=== PATIENT | female | born 1990 | race Caucasian/White ===

== ENCOUNTER 2017-07-16 10:35 | Day surgery (SDC) | payer OTHER, SELFPAY ==
[2017-07-16] VITALS (8 sets, daily range): BP systolic 95–139; BP diastolic 59–78; PULSE 78–90; RESP 18–20; TEMP 36.7; O2SAT 98–100; BMI 25.9
[2017-07-16 11:03] LABS: Urine Pregnancy, HCG Qual. Negative (Negative)
--- NOTE | 2017-07-16 11:21 | HMH.ANESCL ---
[facility] Anesthesia Checklist - Patient Identification Patient Identification: Arm Band, Verbal (Name & ) - Structural Data Admitted From: Home Planned Operative Procedure/s: colonoscopy Consent for Planned Operative Procedure(s) Verified: Yes Verified Documents: Surgical Consent - NPO Status Verified Time NPO: 00:00 - Additional verifications Patient : No Anesthesia Reactions: No Hx Blood Transfusions: No Blood Transfusion Reaction: No Cephalosporin Allergy: No Previous Colonoscopy: No - Cardiovascular Assessment Heart Sounds: S1 & S2 Pulse Strength: Baseline Pulse Rhythm: Regular - Airway Assessment C-Spine Mobility Assessed: Yes TMJ Mobility Assessed: Yes Dentition: Good Dentition - Neurological Assessment Level of Consciousness: Awake, Alert, Appropriate Hx Seizures: No Numbness or tingling in extremities: No - Anesthesia Plan Anesthesia Risk discussed: Yes Anesthesia Plan: Verified ASA Class: I Anesthesia Type: MAC [facility] Anesthesia HX I have reviewed the patient's past medical history: Yes Medical History: Reports:: Gastroesophageal Reflux Disease(GERD) Denies:: Diabetes Mellitus Type 1, Diabetes Mellitus Type 2, Internal Pacemaker, Lung Disease, Seizures Other Surgeries: No: Pacemaker *Family Hx:: Unable to obtain
--- NOTE | 2017-07-16 11:38 | HMH.PROC ---
[facility] Procedure Note Procedure Note:: Colonoscopy Procedure Report: Colonoscopy with cold biopsies Endoscopist: Nahun Lara II, MD Referring physician: None Date of Procedure: July 16, 2017 Equipment: Olympus 180 variable stiffness pediatric colonoscope Sedation: MAC sedation Indication: Ms. Shin is a 26-year-old female with dyspepsia. She also has had bowel irregularity with diarrhea and sometimes constipation. The diarrhea has been predominant. She does state that her symptoms have been much more manageable and she has reduced abdominal pain and diarrhea. She has less bloating. Her EGD from May 04, 2017 showed linear reactive gastritis and some nonerosive GERD. Her gastric biopsies confirmed reactive gastritis. Her duodenal biopsies showed no evidence of celiac disease. She was treated with a fiber bowel regimen and buspirone. The patient reports no rectal bleeding, weight loss or family history of colon cancer. Procedure: Prior to the procedure, a history and physical exam was performed, and patient's medications and allergies were reviewed. The risks, benefits and alternatives of the sedation and procedure were discussed with the patient. All questions were answered and informed consent was obtained. The patient was brought to the procedure room. Patient identification and proposed procedure were verified by the physician and the nurse. The patient was placed in a left lateral decubitus position and the scope was passed under direct vision. Throughout the procedure, the patient's blood pressure, pulse, and oxygen saturations were monitored continuously. The colonoscopy was accomplished without difficulty. The patient tolerated the procedure well. Findings: On digital rectal examination there was normal rectal tone. There were no external hemorrhoids. The colonoscope was introduced through the anal canal to the rectum and advanced to the cecum. The ileocecal valve and appendiceal orifice were identified. The scope was advanced a short distance into the ileum which appeared grossly normal. The scope was then withdrawn into the colon. The cecum, ascending, transverse, descending, sigmoid and rectum were grossly normal. Random cold biopsies were taken from the right colon/ascending colon to rule out microscopic colitis. There were no mucosal abnormalities identified. Upon retroflexion within the rectum there were grade 1 internal hemorrhoids. Impression: 1. Normal colonoscopy with intubation of the terminal ileum 2. Grade 1 internal hemorrhoids Plan: I do feel that the patient has functional bowel disease. I would continue dietary measures, fiber bowel regimen and buspirone. She will follow-up with Linda cason on July 18, 2017.
--- NOTE | 2017-07-16 11:57 | P.PCN_ITS ---
[facility] Procedure Note Procedure Note:: Colonoscopy Procedure Report: Colonoscopy with cold biopsies Endoscopist: Nahun Lara II, MD Referring physician: None Date of Procedure: July 16, 2017 Equipment: Olympus 180 variable stiffness pediatric colonoscope Sedation: MAC sedation Indication: Ms. Shin is a 26-year-old female with dyspepsia. She also has had bowel irregularity with diarrhea and sometimes constipation. The diarrhea has been predominant. She does state that her symptoms have been much more manageable and she has reduced abdominal pain and diarrhea. She has less bloating. Her EGD from May 04, 2017 showed linear reactive gastritis and some nonerosive GERD. Her gastric biopsies confirmed reactive gastritis. Her duodenal biopsies showed no evidence of celiac disease. She was treated with a fiber bowel regimen and buspirone. The patient reports no rectal bleeding, weight loss or family history of colon cancer. Procedure: Prior to the procedure, a history and physical exam was performed, and patient' s medications and allergies were reviewed. The risks, benefits and alternatives of the sedation and procedure were discussed with the patient. All questions were answered and informed consent was obtained. The patient was brought to the procedure room. Patient identification and proposed procedure were verified by the physician and the nurse. The patient was placed in a left lateral decubitus position and the scope was passed under direct vision. Throughout the procedure, the patient's blood pressure, pulse, and oxygen saturations were monitored continuously. The colonoscopy was accomplished without difficulty. The patient tolerated the procedure well. Findings: On digital rectal examination there was normal rectal tone. There were no external hemorrhoids. The colonoscope was introduced through the anal canal to the rectum and advanced to the cecum. The ileocecal valve and appendiceal orifice were identified. The scope was advanced a short distance into the ileum which appeared grossly normal. The scope was then withdrawn into the colon. The cecum, ascending, transverse, descending, sigmoid and rectum were grossly normal. Random cold biopsies were taken from the right colon/ ascending colon to rule out microscopic colitis. There were no mucosal abnormalities identified. Upon retroflexion within the rectum there were grade 1 internal hemorrhoids. Impression: 1. Normal colonoscopy with intubation of the terminal ileum 2. Grade 1 internal hemorrhoids Plan: I do feel that the patient has functional bowel disease. I would continue dietary measures, fiber bowel regimen and buspirone. She will follow-up with Linda cason on July 18, 2017.
--- NOTE | 2017-07-16 13:01 | P.PN_ITS ---
[facility] Anesthesia Checklist - Structural Data Planned Operative Procedure/s: colonoscopy Consent for Planned Operative Procedure(s) Verified: Yes Verified Documents: Surgical Consent - Airway Assessment C-Spine Mobility Assessed: Yes TMJ Mobility Assessed: Yes Dentition: Good Dentition - Neurological Assessment Level of Consciousness: Awake, Alert - Anesthesia Plan Anesthesia Risk discussed: Yes Anesthesia Plan: Verified ASA Class: I Anesthesia Type: MAC [facility] Anesthesia HX I have reviewed the patient's past medical history: Yes Medical History: Reports:: Gastroesophageal Reflux Disease(GERD) Denies:: Diabetes Mellitus Type 1, Diabetes Mellitus Type 2, Internal Pacemaker, Lung Disease, Seizures Other Medical History: Denies: Blood Transfusion Reaction Other Surgeries: No: Pacemaker *Family Hx:: Unable to obtain
== END 2017-07-16 13:00 | disposition home or self-care (01) ==
LOC: OUTP 10:42
PROVIDERS: Visit Provider Internal Medicine Gastroenterology
PROC: 0DJD8ZZ Inspection of Lower Intestinal Tract, Via Natural or Artificial Opening Endoscopic (ICD-10-PCS; CPT 45378; principal; 2017-07-16 11:30)
DX: R10.13 Epigastric pain (principal); R19.4 Change in bowel habit; K64.0 First degree hemorrhoids
CPT/HCPCS: 45380; 81025